=== PATIENT | male | born 1975 | race Caucasian/White ===

== ENCOUNTER 2018-11-12 15:22 | Emergency (ER) | payer MEDICAID ==
[2018-11-12] MEDS: KETOROLAC 30 MG INJ IM (18:36)
[2018-11-12] MEDS: LIDOCAINE 2%/EPI (MDV) 20ML INJ INJ (19:12)
[2018-11-12] MEDS: ONDANSETRON (ODT) 4 MG TAB ODT (19:15)
[2018-11-12] MEDS: morphine 4 MG/ML VIAL IV (19:15)
[2018-11-12] MEDS: DIPHTH/TET/ACEL PERTUSS (ADULT) 0.5 ML VIAL IM* (19:16)
== END 2018-11-12 21:30 | disposition home or self-care (01) ==
LOC: FTE 15:22
DX: S41.111A Laceration without foreign body of right upper arm, initial encounter (principal); S80.02XA Contusion of left knee, initial encounter; W26.9XXA Contact with unspecified sharp object(s), initial encounter; Y92.9 Unspecified place or not applicable; Z23 Encounter for immunization
CPT/HCPCS: 12005; 73080-RT; 73562; 90471; 90715; 96372; 96374; 99284-25

== ENCOUNTER 2018-11-26 21:02 | Emergency (ER) | payer MEDICAID | END 2018-11-27 01:49 | disposition home or self-care (01) | LOC: FTE 11-27 01:49 | DX: Z48.02 Encounter for removal of sutures (principal) | CPT/HCPCS: 99281 ==

== ENCOUNTER 2019-05-12 02:01 | Emergency (ER) | payer OTHER, MEDICAID ==
[2019-05-12] MEDS: METHOCARBAMOL 750 MG TAB PO (03:03)
[2019-05-12] MEDS: KETOROLAC 30 MG INJ IM (03:04)
== END 2019-05-12 03:48 | disposition home or self-care (01) ==
LOC: FTE 02:01
DX: S39.92XA Unspecified injury of lower back, initial encounter (principal); X58.XXXA Exposure to other specified factors, initial encounter; Y92.310 Basketball court as the place of occurrence of the external cause
CPT/HCPCS: 96372; 99284-25